=== PATIENT | female | born 1995 | race Caucasian/White ===

== ENCOUNTER → 2022-06-07 | Outpatient (CLI) | payer OTHER ==
--- NOTE | 2022-06-07 17:59 | US ---
EXAMINATION TYPE: US transvaginal DATE OF EXAM: 06/07/2022 COMPARISON: NONE CLINICAL HISTORY: N93.9 abn uterine bleeding. bleeding. TECHNIQUE: Transvaginal (TV EXAM MEASUREMENTS: Uterus: 7.6 x 4.0 x 4.8 cm Endometrial Stripe: .3 cm Right Ovary: 2.5 x 1.5 x 1.9 cm Left Ovary: 3.4 x 2.0 x 1.5 cm 1. Uterus: Anteverted wnl 2. Endometrium: wnl 3. Right Ovary: follicles seen 4. Left Ovary: follicles seen. 5. Bilateral Adnexa: wnl 6. Posterior cul-de-sac: wnl IMPRESSION: ovarian follicles otherwise unremarkable study
== END | disposition home or self-care (01) ==
LOC: RADUSWWP 16:25
PROVIDERS: ATTEND Family Medicine
DX: N93.9 Abnormal uterine and vaginal bleeding, unspecified (principal)
CPT/HCPCS: 76830

== ENCOUNTER → 2022-06-08 | Outpatient (CLI) | payer OTHER ==
[2022-06-08 14:25] LABS: Basophils # (A) 0.05 X 10*3/uL (0.00-0.10); Basophils % (A) 0.7 %; Eosinophils # (A) 0.17 X 10*3/uL (0.04-0.35); Eosinophils % (A) 2.4 %; HCT 38.7 % (37.2-46.3); HGB 12.5 g/dL (12.0-15.0); Immature Grans, Automated 0.3 %; Lymphocytes # (A) 1.93 X 10*3/uL (0.90-5.00); MCH 28.2 pg (27.0-32.0); MCHC 32.3 g/dL (32.0-37.0); MCV 87.4 fL (80.0-97.0); Mean Platelet Volume 12.5 fL (9.5-12.2); Monocytes # (A) 0.61 X 10*3/uL (0.20-1.00); Monocytes % (A) 8.5 %; NRBC Per 100 WBC 0 /100 WBCS (0.0-0.0); Neutrophils # (A) 4.36 X 10*3/uL (1.80-7.70); Neutrophils % (A) 61.1 %; Platelet Count 277 X 10*3/uL (140-440); RBC 4.43 X 10*6/uL (4.10-5.20); RDW 12.6 % (11.5-14.5); WBC 7.14 X 10*3/uL (4.50-10.00)
[2022-06-08 16:10] LABS: Follicle Stimulating Hormone 3.9 mIU/mL; Luteinizing Hormone 4.5 mIU/mL
[2022-06-08 16:28] LABS: ALT 21 U/L (8-44); AST 24 U/L (13-35); African American GFR (CKD) 136.5 (60.0-200.0); Albumin 4.1 g/dL (3.8-4.9); Albumin/Globulin Ratio 1.77 (1.60-3.17); Alkaline Phosphatase 58 U/L (41-126); BUN/Creat Ratio 19.78 Ratio (12.00-20.00); Blood Urea Nitrogen 14.1 mg/dL (9.0-27.0); Calcium 9.4 mg/dL (8.7-10.3); Carbon Dioxide 21.7 mmol/L (20.0-27.5); Chloride 104 mmol/L (96-109); Globulin 2.3 g/dL (1.6-3.3); Glucose 93 mg/dL (70-110); Non-African American GFR(CKD) 117.8 (60.0-200.0); Potassium 3.9 mmol/L (3.5-5.5); Sodium 139 mmol/L (135-145); Total Protein 6.4 g/dL (6.2-8.2)
[2022-06-08 21:41] LABS: Estradiol 30.2 pg/mL
== END | disposition home or self-care (01) ==
LOC: LABWHC1 11:01
PROVIDERS: ATTEND Family Medicine
DX: N93.9 Abnormal uterine and vaginal bleeding, unspecified (principal)
CPT/HCPCS: 36415; 80053; 82670; 83001; 83002; 84146; 84443; 85025; 85246

== ENCOUNTER → 2023-04-12 | Outpatient (CLI) | payer OTHER ==
--- NOTE | 2023-04-13 07:40 | US ---
EXAMINATION TYPE: US kidneys/renal and bladder DATE OF EXAM: 04/12/2023 COMPARISON: NONE CLINICAL INDICATION: Female, 27 years old with history of R30.0 DYSURIA; Pt states h/o UTI, dysuria EXAM MEASUREMENTS: Right Kidney: 10.6 x 4.3 x 5.9 cm Left Kidney: 13.3 x 5.1 x 5.9 cm Right Kidney: No evidence of hydro, solid, isoechoic area mid at hilum ?double collecting system vs. normal renal tissue, vs. other etiology Left Kidney: No evidence of hydro, solid, isoechoic area mid- possible represents double collecting s ystem Bladder: wnl Bilateral Jets seen: No There is no evidence for hydronephrosis at this point in time. No nephrolithiasis is seen. No juana s are identified. The urinary bladder is anechoic. Bilateral ureteral jets are seen. IMPRESSION: Unremarkable study
== END | disposition home or self-care (01) ==
LOC: RADUSWWP 16:03
PROVIDERS: ATTEND Internal Medicine
DX: R30.0 Dysuria (principal); Z87.440 Personal history of urinary (tract) infections
CPT/HCPCS: 76770

== ENCOUNTER → 2024-01-24 | Outpatient (CLI) | payer BC, OTHER ==
--- NOTE | 2024-01-24 08:17 | US ---
EXAMINATION TYPE: US kidneys/renal and bladder DATE OF EXAM: 01/24/2024 COMPARISON: 04/12/2023 CLINICAL INDICATION: Female, 28 years old with history of N20.0 KIDNEY STONE R10.9 BILATERAL FLANK PA IN; back pain radiating to pelvis; Recent kidney infection - resolved EXAM MEASUREMENTS: Right Kidney: 14.0 x 4.4 x 4.8 cm Left Kidney: 13.7 x 5.3 x 5.5 cm Post Void Residual Volume: NA mL Right Kidney: No obstructing calculus or hydronephrosis. No solid masses. Column of Jason noted. Left Kidney: No obstructing calculus or hydronephrosis. No solid masses. Bladder: Not fully distended - patient stated bladder felt full (13) mL Bilateral Jets seen: Not able to assess Normal Post Void Residual: NA There is no evidence for hydronephrosis at this point in time. No nephrolithiasis is seen. IMPRESSION: No obstructive uropathy. [facility], , 01/24/2024 8:15 AM
--- NOTE | 2024-01-24 08:24 | US ---
EXAMINATION TYPE: US transvaginal DATE OF EXAM: 01/24/2024 COMPARISON: 06/07/2022 CLINICAL INDICATION: Female, 28 years old with history of R10.2 PELVIC PAIN; Back pain radiating to p missael TECHNIQUE: Transabdominal sonographic images of the pelvis were not ordered. Transvaginal sonographic images were medically necessary to better assess the following anatomy: Date of LMP: 12/18/2023 EXAM MEASUREMENTS: Uterus: 8.2 x 4.8 x 5.9 cm Endometrial Stripe: 1.2 cm Right Ovary: 3.1 x 1.7 x 1.3 cm Left Ovary: 4.1 x 2.5 x 2.4 cm 1. Uterus: Anteverted Heterogenous 2. Endometrium: Within normal limits for patient's age 3. Right Ovary: WNL 4. Left Ovary: WNL 5. Bilateral Adnexa: WNL 6. Posterior cul-de-sac: trace fluid IMPRESSION: 1. No evidence for acute process. 2. Endometrium within normal limits for patient's age. [facility], , 01/24/2024 8:21 AM
== END | disposition home or self-care (01) ==
LOC: RADUSWWP 06:48
PROVIDERS: ATTEND Internal Medicine
DX: N20.0 Calculus of kidney (principal)
CPT/HCPCS: 76770; 76830